=== PATIENT | female | born 1980 | race Hispanic/Latino ===

== ENCOUNTER 2017-08-15 13:38 | Emergency (ER) | payer BC, SELFPAY ==
[2017-08-15] MEDS ORDERED: NA CHLORIDE 0.9% 500 ML ONE (14:17)
[2017-08-15 14:42] LABS: Absolute Lymphocytes (CBC) 1.9 K/uL (0.7-4.9); Absolute Monocytes 0.6 K/uL (0.1-1.3); Absolute Neutrophil 7.3 K/uL (1.8-8.0); Basophils % 0.8 % (0-1.3); Eosinophils % 1.5 % (0-4.4); Hematocrit 23.1 % (36.0-45.0); MCH 17.5 pg (27.0-35.0); MCV 58.3 fL (80-100); MPV 9.1 fL (7.6-11.3); Monocytes % 5.7 % (3.3-12.3); RBC Red Blood Cell Count 3.97 M/uL (3.86-4.86)
[2017-08-15 14:50] LABS: Bicarbonate 27 mEq/L (21-31); Glucose Level 98 mg/dL (65-120); Potassium 3.4 mEq/L (3.6-5.0); Sodium Level 139 mEq/L (135-145)
[2017-08-15 14:56] LABS: ALT/SGPT 10 IU/L (10-60); AST/SGOT 17 IU/L (10-42); Albumin 4.4 g/dL (3.2-5.5); Alkaline Phosphatase 63 IU/L (42-121); BUN Blood Urea Nitrogen 9 mg/dL (6-20); Bilirubin Direct < 0.1 mg/dL (0-0.2); Bilirubin Total 0.2 mg/dL (0.3-1.2); Magnesium 2.2 mg/dL (1.8-2.5); Protein, Total 8.8 g/dL (6.0-8.3)
[2017-08-15] MEDS ORDERED: POTASSIUM CL SA 10 MEQ TAB PO ONE (15:23)
--- NOTE | 2017-08-15 15:24 | ER ---
Nurse's Notes [facility] Name: Tracey Sears Age: 37 yrs Sex: Female : 1980 Arrival Date: 08/15/2017 Time: 13:45 Bed 6 Private MD: Diagnosis: Iron deficiency anemia, unspecified;Anemia, unspecified Presentation: 08/15 13:45 Presenting complaint: Patient states: was sent here by my PCP for abnormal blood count; hj Hgb- 6.8; reports SOB;. Transition of care: patient was not received from another setting of care. Onset of symptoms was August 15, 2017. Initial Sepsis Screen: Does the patient meet any 2 criteria? No. Patient's initial sepsis screen is negative. Does the patient have a suspected source of infection? No. Patient's initial sepsis screen is negative. Care prior to arrival: None. 13:45 Method Of Arrival: Ambulatory 13:45 Acuity: CELINE 3 hj Triage Assessment: 13:47 General: Appears in no apparent distress. uncomfortable, Behavior is calm, cooperative, hj appropriate for age. Pain: Denies pain. 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 - Family history:: not pertinent. - Social history:: Smoking status: Patient/guardian denies using tobacco. Screenin:24 Abuse screen: Denies threats or abuse. Denies injuries from another. Nutritional sv screening: No deficits noted. Tuberculosis screening: No symptoms or risk factors identified. Fall Risk None identified. Assessment: 14:05 General: Appears in no apparent distress. comfortable, well developed, Behavior is sv calm, cooperative, appropriate for age. Pain: Denies pain. Neuro: Level of Consciousness is awake, alert, obeys commands, Oriented to person, place, time, situation, Moves all extremities. Full function Gait is steady, Speech is normal. Respiratory: Reports shortness of breath on exertion since "a long time" Respiratory effort is even, unlabored, Respiratory pattern is regular, symmetrical. GI: No signs and/or symptoms were reported involving the gastrointestinal system. : No signs and/or symptoms were reported regarding the genitourinary system. EENT: No signs and/or symptoms were reported regarding the EENT system. Derm: Skin is pale. Musculoskeletal: No signs and/or symptoms reported regarding the musculoskeletal system. 16:25 Reassessment: Patient appears in no apparent distress at this time. No changes from sv previously documented assessment. Patient and/or family updated on plan of care and expected duration. Pain level reassessed. Patient is alert, oriented x 3, equal unlabored respirations, skin warm/dry/pink. Vital Signs: 13:47 BP 100 / 72; Pulse 98; Resp 18; Temp 99.3(TE); Pulse Ox 100% on R/A; Weight 58.97 kg; hj Height 4 ft. 11 in. (149.86 cm); Pain 0/10; 14:27 BP 98 / 62; Pulse 88 MON; Resp 16; Pulse Ox 100% on R/A; sv 15:40 BP 107 / 65 LA Supine (auto/reg); Pulse 96; sv 15:42 BP 105 / 63 LA Sitting (auto/reg); Pulse 105; sv 15:44 BP 97 / 58 LA Standing (auto/reg); Pulse 107; sv 13:47 Body Mass Index 26.26 (58.97 kg, 149.86 cm) hj 14:27 Sinus Rhythm sv ED Course: 13:45 Patient arrived in ED. hj 13:46 Triage completed. hj 13:48 Arm band placed on left wrist. hj 13:55 Amilcar Martínez MD is Attending Physician. shaka 14:10 Initial lab(s) drawn, by ED staff, sent to lab. Inserted saline lock: 20 gauge in right sv antecubital area, using aseptic technique. ,using aseptic technique. done by [facility] Blood collected. 14:12 Mariana Killian RN is Primary Nurse. sv 14:24 Patient has correct armband on for positive identification. Placed in gown. Bed in low sv position. Side rails up X 1. Adult w/ patient. quality assurance monitor on. Pulse ox on. NIBP on. Door closed. Warm blanket given. Head of bed elevated. 14:53 CBC Smear Scan Sent. sv 15:23 X-ray completed. Portable x-ray completed in exam room. Patient tolerated procedure kc2 well. 15:24 XRAY Chest (1 view) In Process Unspecified. EDMS 15:24 Jacques Pickard MD is Referral Physician. [facility] 15:24 Vandana Flannery MD is Referral Physician. shaka 16:25 No provider procedures requiring assistance completed. IV discontinued, intact, sv bleeding controlled, No redness/swelling at site. Pressure dressing applied. Administered Medications: 14:24 Drug: NS 0.9% 500 ml Route: IV; Rate: bolus; Site: right antecubital; sv 15:30 Follow up: Response: No adverse reaction; IV Status: Completed infusion; IV Intake: sv 500ml 16:12 Drug: Potassium Chloride 20 mEq Route: PO; sv 16:12 Follow up: Response: Medication administered at discharge. sv Intake: 15:30 IV: 500ml; Total: 500ml. sv Outcome: 15:23 Discharge ordered by . [facility] 16:25 Discharged to home ambulatory. sv 16:25 Condition: stable 16:25 Discharge instructions given to patient, Instructed on discharge instructions, follow up and referral plans. medication usage, increase fluid intake, iron rich foods and to add Vitamin C intake. Demonstrated understanding of instructions, follow-up care, medications, Prescriptions given X 1. 16:26 Patient left the ED. sv Signatures: Dispatcher [employer] EDAK Mariana Killian RN RN sv Anderson, Corey, MD MD cha Joaquin, Henry, RN RN Mignon Keyes2 Corrections: (The following items were deleted from the chart) 13:49 13:47 Pulse 98bpm; Resp 18bpm; Pulse Ox 100% RA; Temp 99.3F Temporal; 58.97 kg; Height 4 ft. 11 in.; BMI: 26.2; Pain 0/10; hj
--- NOTE | 2017-08-15 15:24 | EDPHYS ---
Physician Documentation [facility] Name: Tracey Sears Age: 37 yrs Sex: Female : 1980 Arrival Date: 08/15/2017 Time: 13:45 Bed 6 Private MD: ED Physician Amilcar Martínez HPI: 08/15 14:12 This 37 yrs old Female presents to ER via Ambulatory with complaints of shaka Abnormal Lab Results. 14:12 TOLD HGB IS LOW. Onset: The symptoms/episode began/occurred 2 day(s) ago. Severity of shaka symptoms: At their worst the symptoms were mild in the emergency department the symptoms are unchanged. The patient has experienced similar episodes in the past. 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 - Family history:: not pertinent. - Social history:: Smoking status: Patient/guardian denies using tobacco. ROS: 14:12 Constitutional: Negative for fever, chills, and weight loss, Eyes: Negative for injury, shaka pain, redness, and discharge, ENT: Negative for injury, pain, and discharge, Neck: Negative for injury, pain, and swelling, Cardiovascular: Negative for chest pain, palpitations, and edema, Respiratory: Negative for shortness of breath, cough, wheezing, and pleuritic chest pain, Abdomen/GI: Negative for abdominal pain, nausea, vomiting, diarrhea, and constipation, Back: Negative for injury and pain, : Negative for injury, bleeding, discharge, and swelling, MS/Extremity: Negative for injury and deformity, Neuro: Negative for headache, weakness, numbness, tingling, and seizure, Psych: Negative for depression, anxiety, suicide ideation, homicidal ideation, and hallucinations, Allergy/Immunology: Negative for hives, rash, and allergies, Endocrine: Negative for neck swelling, polydipsia, polyuria, polyphagia, and marked weight changes, Hematologic/Lymphatic: Negative for swollen nodes, abnormal bleeding, and unusual bruising. 14:12 Skin: Positive for pallor. Exam: 14:12 Constitutional: This is a well developed, well nourished patient who is awake, alert, shaka and in no acute distress. Head/Face: Normocephalic, atraumatic. Eyes: Pupils equal round and reactive to light, extra-ocular motions intact. Lids and lashes normal. Conjunctiva and sclera are non-icteric and not injected. Cornea within normal limits. Periorbital areas with no swelling, redness, or edema. ENT: Nares patent. No nasal discharge, no septal abnormalities noted. Tympanic membranes are normal and external auditory canals are clear. Oropharynx with no redness, swelling, or masses, exudates, or evidence of obstruction, uvula midline. Mucous membranes moist. Neck: Trachea midline, no thyromegaly or masses palpated, and no cervical lymphadenopathy. Supple, full range of motion without nuchal rigidity, or vertebral point tenderness. No Meningismus. Chest/axilla: Normal chest wall appearance and motion. Nontender with no deformity. No lesions are appreciated. Cardiovascular: Regular rate and rhythm with a normal S1 and S2. No gallops, murmurs, or rubs. Normal PMI, no JVD. No pulse deficits. Respiratory: Lungs have equal breath sounds bilaterally, clear to auscultation and percussion. No rales, rhonchi or wheezes noted. No increased work of breathing, no retractions or nasal flaring. Abdomen/GI: Soft, non-tender, with normal bowel sounds. No distension or tympany. No guarding or rebound. No evidence of tenderness throughout. Back: No spinal tenderness. No costovertebral tenderness. Full range of motion. MS/ Extremity: Pulses equal, no cyanosis. Neurovascular intact. Full, normal range of motion. Neuro: Awake and alert, GCS 15, oriented to person, place, time, and situation. Cranial nerves II-XII grossly intact. Motor strength 5/5 in all extremities. Sensory grossly intact. Cerebellar exam normal. Normal gait. Psych: Awake, alert, with orientation to person, place and time. Behavior, mood, and affect are within normal limits. 14:12 Skin: Appearance: Color: pale, Temperature: warm, Moisture: normal moisture, petechiae, not noted, ecchymosis, not noted, flushing, not noted, swelling, is not appreciated. 15:54 Musculoskeletal/extremity: DVT Exam: No signs of deep vein thrombosis. no pain, no shaka swelling, no tenderness, negative Homans' sign noted on exam, no appreciated bluish discoloration, no erythema, no increased warmth. Vital Signs: 13:47 BP 100 / 72; Pulse 98; Resp 18; Temp 99.3(TE); Pulse Ox 100% on R/A; Weight 58.97 kg; hj Height 4 ft. 11 in. (149.86 cm); Pain 0/10; 14:27 BP 98 / 62; Pulse 88 MON; Resp 16; Pulse Ox 100% on R/A; sv 15:40 BP 107 / 65 LA Supine (auto/reg); Pulse 96; sv 15:42 BP 105 / 63 LA Sitting (auto/reg); Pulse 105; sv 15:44 BP 97 / 58 LA Standing (auto/reg); Pulse 107; sv 13:47 Body Mass Index 26.26 (58.97 kg, 149.86 cm) hj 14:27 Sinus Rhythm sv MDM: 13:55 Patient medically screened. [facility] 14:16 Data reviewed: vital signs, nurses notes, lab test result(s), EKG, radiologic studies. [facility] 08/15 14:08 Order name: Basic Metabolic Panel; Complete Time: 15:18 [facility] 08/15 14:08 Order name: BNP; Complete Time: 15:18 [facility] 08/15 14:08 Order name: CBC with Diff; Complete Time: 15:54 [facility] 08/15 14:08 Order name: LFT's; Complete Time: 15:18 [facility] 08/15 14:08 Order name: Magnesium; Complete Time: 15:18 [facility] 08/15 14:08 Order name: Type And Screen; Complete Time: 15:54 [facility] 08/15 14:46 Order name: CBC Smear Scan; Complete Time: 15:54 EDMT 08/15 14:55 Order name: Retic Count; Complete Time: 15:54 [facility] 08/15 14:55 Order name: Folic Acid,Serum (folate) [facility] 08/15 14:55 Order name: B12 [facility] 08/15 14:55 Order name: TIBC [facility] 08/15 14:55 Order name: Ferritin [facility] 08/15 15:35 Order name: ABO/RH no charge; Complete Time: 15:54 EDMS 08/15 14:08 Order name: XRAY Chest (1 view); Complete Time: 15:54 [facility] 08/15 14:08 Order name: EKG; Complete Time: 14:09 [facility] 08/15 14:08 Order name: Cardiac monitoring; Complete Time: 14:13 [facility] 08/15 14:08 Order name: EKG - Nurse/Tech; Complete Time: 14:24 [facility] 08/15 14:08 Order name: IV Saline Lock; Complete Time: 14:14 [facility] 08/15 14:08 Order name: Labs collected and sent; Complete Time: 14:14 [facility] 08/15 14:08 Order name: O2 Per Protocol; Complete Time: 14:14 [facility] 08/15 14:08 Order name: O2 Sat Monitoring; Complete Time: 14:14 [facility] 08/15 15:18 Order name: Orthostatics; Complete Time: 15:54 [facility] 08/15 16:09 Order name: Urine Dipstick--Ancillary (enter results) ag 08/15 16:09 Order name: Urine --Ancillary (enter results) ag Administered Medications: 14:24 Drug: NS 0.9% 500 ml Route: IV; Rate: bolus; Site: right antecubital; sv 15:30 Follow up: Response: No adverse reaction; IV Status: Completed infusion; IV Intake: sv 500ml 16:12 Drug: Potassium Chloride 20 mEq Route: PO; sv 16:12 Follow up: Response: Medication administered at discharge. sv Disposition: 08/15/17 15:23 Discharged to Home. Impression: Iron deficiency anemia, unspecified, Anemia, unspecified. - Condition is Stable. - Discharge Instructions: Iron Deficiency Anemia, Adult, Anemia, Nonspecific, Iron-Rich Diet, Iron Deficiency Anemia, Adult, [id number]. - Prescriptions for Ferrous Sulfate 325 mg (65 mg Iron) Oral Tablet - take 1 tablet by ORAL route every 8 hours; 90 tablet. - Medication Reconciliation Form, Thank You Letter, Antibiotic Education, Prescription Opioid Use form. - Follow up: Private Physician; When: 2 - 3 days; Reason: Recheck today's complaints, Continuance of care, Re-evaluation by your physician. Follow up: Jacques Pickard MD; When: 2 - 3 days; Reason: Recheck today's complaints, Re-evaluation by your physician. Follow up: Vandana Flannery MD; When: 2 - 3 days; Reason: Recheck today's complaints, Re-evaluation by your physician. - Problem is new. - Symptoms have improved. Signatures: Dispatcher [employer] [facility] Mariana Killian, RN RN Amilcar Jordan MD MD cha Joaquin, Henry RN RN Corrections: (The following items were deleted from the chart) 14:56 14:55 FERRITIN+C.LAB.BRZ ordered. [facility] 15:25 15:23 08/15/2017 15:23 Discharged to Home. Impression: Iron deficiency anemia, shaka unspecified; Anemia, unspecified. Condition is Stable. Forms are Medication Reconciliation Form, Thank You Letter, Antibiotic Education, Prescription Opioid Use. Follow up: Private Physician; When: 2 - 3 days; Reason: Recheck today's complaints, Continuance of care, Re-evaluation by your physician. Problem is new. Symptoms have improved. shaka 16:26 15:25 08/15/2017 15:23 Discharged to Home. Impression: Iron deficiency anemia, sv unspecified; Anemia, unspecified. Condition is Stable. Discharge Instructions: Iron Deficiency Anemia, Adult, Anemia, Nonspecific, Iron-Rich Diet, Iron Deficiency Anemia, Adult, [id number]. Prescriptions for Ferrous Sulfate 325 mg (65 mg Iron) Oral Tablet - take 1 tablet by ORAL route every 8 hours; 90 tablet. and Forms are Medication Reconciliation Form, Thank You Letter, Antibiotic Education, Prescription Opioid Use. Follow up: Private Physician; When: 2 - 3 days; Reason: Recheck today's complaints, Continuance of care, Re-evaluation by your physician. Follow up: Jacques Pickard; When: 2 - 3 days; Reason: Recheck today's complaints, Re-evaluation by your physician. Follow up: Vandana Flannery; When: 2 - 3 days; Reason: Recheck today's complaints, Re-evaluation by your physician. Problem is new. Symptoms have improved. shaka
[2017-08-15 15:29] LABS: Anisocytosis 1+; Blood Morphology Comment NOTED (NOT SEEN); Hypochromasia 3+; Ovalocytes 1+; Platelet Estimate ADEQ; Urine White Blood Cell Casts OK
--- NOTE | 2017-08-15 15:38 | RAD REPORT ---
EXAM DESCRIPTION: Aide Single View08/15/2017 3:28 pm CLINICAL HISTORY: Cough COMPARISON: None FINDINGS: The lungs appear clear of acute infiltrate. The heart is normal size IMPRESSION: No acute abnormalities displayed
[2017-08-15 15:57] LABS: Ferritin 1.2 ng/ml (11.0-306.8)
[2017-08-15 16:00] LABS: Folic Acid, (Folate) 14.2 ng/ml (>5.21)
[2017-08-15 16:36] LABS: Urine Blood NEGATIVE (NEG); Urine Glucose NEGATIVE (NEG); Urine Protein NEGATIVE (NEG); Urine pH 7.5 (5.0-7.0)
--- NOTE | 2017-08-16 06:58 | EKG ---
Test Date: 2017-08-15 Test Time: 14:21:06 Wrapper Hand: ISMAEL MEASUREMENT RESULTS: Intervals: Rate: 91 OH: 118 QRSD: 84 QT: 340 QTc: 418 [place]: P: 42 OH: 118 QRS: 33 T: 25 INTERPRETIVE STATEMENTS: Normal sinus rhythm Normal ECG No previous ECG available for comparison Electronically Signed On 08-16-17 06:58:08 CDT by Rudy Willard
== END 2017-08-15 16:26 | disposition home or self-care (01) ==
LOC: ER 13:38
DX: D50.9 Iron deficiency anemia, unspecified (principal)
CPT/HCPCS: 36415; 71045; 80048; 80076; 81003; 81025; 82607; 82728; 82746; 83540; 83735; 83880; 84466; 85025; 85044; 86850; 86900; 86901; 93005; 96360; 99284